=== PATIENT | male | born 1945 ===

== ENCOUNTER 2017-10-15 06:58 | Day surgery (SDC) | payer OTHER | END 2017-10-15 11:45 | disposition home or self-care (01) | LOC: AMB-ENDOS 06:58 | DX: D12.0 Benign neoplasm of cecum (principal) ==

== ENCOUNTER 2018-11-11 07:47 | Day surgery (SDC) | payer OTHER | END 2018-11-11 13:30 | disposition home or self-care (01) | LOC: AMB-ENDOS 07:47 | DX: D12.4 Benign neoplasm of descending colon (principal); D12.8 Benign neoplasm of rectum ==